=== PATIENT | female | born 1945 | race Caucasian/White ===

== ENCOUNTER 2017-04-10 10:31 | Outpatient (CLI) | payer MEDICARE, BC ==
--- NOTE | 2017-04-17 13:36 | MMO ---
BILATERAL SCREENING MAMMOGRAM: DATE: 04/10/17 HISTORY: 71-year-old female for screening mammography. COMPARISON: 11/13/15, 10/12/14, 09/11/13. FINDINGS: Bilateral MLO and CC views of the breasts show scattered fibroglandular breast tissue. Benign-appear ing calcifications are seen in both breasts. There is no evidence of suspicious mass, suspicious clu ster of microcalcifications, or area of architectural distortion. Interpretation of this mammogram was performed with the assistance of computer-aided detection. IMPRESSION: BIRADS 2: Benign Finding(s) Annual screening mammography is recommended. POS: [facility]
== END 2017-04-10 10:32 | disposition home or self-care (01) ==
LOC: MAMMO 10:31
PROVIDERS: ATTEND Obstetrics & Gynecology
DX: Z12.31 Encounter for screening mammogram for malignant neoplasm of breast (principal)
CPT/HCPCS: 77067; G0202

== ENCOUNTER 2017-11-26 12:41 | Outpatient (CLI) | payer MEDICARE, BC ==
[2017-11-26 14:06] LABS: #Eosinphils 0.1 thou/uL (0.0-0.7); #Lymphocytes 2.6 thou/uL (1.20-3.40); #Monocytes 0.4 thou/uL (0.11-0.59); #Neutrophils 3.9 thou/uL (1.40-6.50); %Basophils 0.6 % (0.0-1.0); %Eosinophils 1.2 % (0.0-10.0); %Lymphocytes 36.9 % (21.0-51.0); %Monocytes 6.2 % (0.0-10.0); %Neutrophils 55.1 % (42.0-75.0); Hemoglobin 13.4 g/dL (12.0-16.0); Mean Corpuscular HGB CONC 34.1 g/dL (32.0-36.0); Mean Corpuscular Hemoglobin 31.6 pg (27.0-31.0); Mean Corpuscular Volume 92.5 fl (81.0-99.0); Mean Platelet Volume 7.3 fL (7.4-10.4); Platelet Count 226 thou/uL (130-400); RBC Distribution Width 12.2 % (11.5-14.5); Red Blood Cell (RBC) Count 4.26 mill/uL (4.20-5.40)
[2017-11-26 14:29] LABS: ALT (SGPT) 44 U/L (8-55); AST (SGOT) 38 U/L (5-34); Albumin 4.2 g/dL (3.4-4.8); Alkaline Phosphatase 113 U/L (40-150); Anion Gap 13 mmol/L (10-20); BUN (Urea Nitrogen) 14 mg/dL (9.8-20.1); Bilirubin, Direct Less than 0.1 mg/dL (0.1-0.3); Bilirubin, Total 0.5 mg/dL (0.2-1.2); Calc. Creatinine Clearance 0 mL/min (70-130); Calcium 9.5 mg/dL (7.8-10.44); Carbon Dioxide 26 mmol/L (23-31); Chloride 103 mmol/L (98-107); Estimated GFR-MDRD 51; Glucose 131 mg/dL (83-110); Protein, Total 8.4 g/dL (6.0-8.3); Sodium 138 mmol/L (136-145)
--- NOTE | 2017-11-27 14:31 | EKG ---
Test Reason : Blood Pressure : / mmHG Vent. Rate : 073 BPM Atrial Rate : 073 BPM P-R Int : 190 ms QRS Dur : 090 ms QT Int : 382 ms P-R-T Axes : 024 078 054 degrees QTc Int : 420 ms Normal sinus rhythm Normal ECG No previous ECGs available Confirmed by DR. Monster ARRIAZA ([id number]) on 11/27/2017 2:31:15 PM Referred By: FARSHAD Confirmed By:DR. Monster ARRIAZA
== END 2017-11-26 12:42 | disposition home or self-care (01) ==
LOC: LABBT 12:41
PROVIDERS: ATTEND Surgery
DX: Z01.818 Encounter for other preprocedural examination (principal); K80.20 Calculus of gallbladder without cholecystitis without obstruction
CPT/HCPCS: 80048; 80076; 85025; 93005; 93010

== ENCOUNTER → 2017-11-29 | Day surgery (SDC) | payer MEDICARE, BC ==
[2017-11-26 13:07] VITALS: BMI 32.4
[~2017-11-29] MED LIST: Bupivacaine/Epinephrine 0.25% 30 ML VIAL ONE; CEFAZOLIN/Water 2 GM/20 ML SYRINGE ONE; Dexamethasone 20 MG/5 ML VIAL ONE; Fentanyl 100 MCG/2 ML VIAL ONE; Glycopyrrolate 0.2 MG/ML 5 ML SYRINGE ONE; HYDROcodone/Acetaminophen 5/325 mg Tablet ONE; Midazolam HCl 2 mg/2 ml Vial ONE; Morphine 4 MG/ML VIAL ONE; PROPOFOL 200 MG/20 ML VIAL ONE; Promethazine HCl 25 MG/ML VIAL ONE
--- NOTE | 2017-11-29 12:42 | OP ---
DATE OF PROCEDURE: 11/29/2017 PREOPERATIVE DIAGNOSIS: Symptomatic gallstones. POSTOPERATIVE DIAGNOSIS: Symptomatic gallstones. PROCEDURE: (1) Laparoscopic cholecystectomy. (2) Percutaneous liver biopsy, core SURGEON: Dr. Nunez. ANESTHESIA: General. ESTIMATED BLOOD LOSS: Minimal. COMPLICATIONS: None. SPECIMEN: Gallbladder, liver core biopsy FINDINGS: Chronic cholecystitis. PROCEDURE IN DETAIL: The patient was taken to the Operating Room and laid supine on the Operating Room table. After general anesthetic was obtained, the abdomen was prepped and draped in a sterile fashion. A curved incision was made below the umbilicus. Cautery was used to dissect down to the umbilical fascia. Umbilical fascia was incised and held up using a Tony. The abdominal cavity was entered using a Radha clamp. Holding stitch of Vicryl was placed on each side of the fascia. Eky trocar was placed. High-flow pneumoperitoneum was obtained. An upper midline 5-mm port and two right upper quadrant 5-mm ports were placed under direct camera visualization. The gallbladder was retracted from the gallbladder fossa. The peritoneum of the gallbladder was opened anteriorly and posteriorly. The critical view triangle was seen showing only the cystic duct and cystic artery branching from medial to lateral. There were no other branching structures. Two clips were placed proximally on the cystic duct and one laterally. It was cut using laparoscopic scissors. The cystic artery was taken in the same way. Electrocautery was then used to dissect the gallbladder out of the gallbladder fossa. The gallbladder was placed in an Endo catch bag and brought out through the Key. There was no bleeding or bile in the liver bed. The cystic duct stump and cystic artery stump were intact without evidence of extravasation or bleeding. A core needle biopsy gun was brought into the sterile field and three liver core biopsies were obtained. Liver bleeding was mild and controlled with cautery. All port sites were infiltrated using local anesthesia. All ports were removed under camera visualization. Pneumoperitoneum was let down. The Vicryl was used to close the fascial defect below the umbilicus. All incisions were irrigated and closed using 4-0 Monocryl and DermaBond. The patient was en route to Recovery in stable condition. All instrument counts, needle counts and lap counts were correct. [facility]
== END ==
LOC: SDC 09:29
PROVIDERS: ATTEND Surgery
PROC: 0FT44ZZ Resection of Gallbladder, Percutaneous Endoscopic Approach (ICD-10-PCS; principal; 2017-11-29)
DX: K80.10 Calculus of gallbladder with chronic cholecystitis without obstruction (principal); K83.0 Cholangitis; K76.0 Fatty (change of) liver, not elsewhere classified; K74.0 Hepatic fibrosis; Z79.899 Other long term (current) drug therapy
CPT/HCPCS: 88304; 88307; 88313; 96374; J1100; J2250; J2270; J2550; J2704; J3010

== ENCOUNTER 2018-06-05 09:00 | Outpatient (CLI) | payer MEDICARE, BC ==
--- NOTE | 2018-06-05 10:41 | ULT ---
HEPATIC ULTRASOUND WITH DOPPLER: INDICATION: Bilateral alcoholic cirrhosis. FINDINGS: Liver shows mildly increased echogenicity. No focal liver mass or lesion seen. The hepatic vessels evaluated with color Doppler and spectral analysis including hepatic veins, portal veins, hepatic art imrna, and splenic artery. These vessels show normal hepatopetal blood flow with Doppler. The patient is post cholecystectomy. Imaging of the pancreas reveals a hypoechoic mass posterior to the body/tail of the pancreas which me asures approximately 2.5 x 5.0 cm. This could represent adenopathy or pancreatic mass lesion. The spleen is upper normal size measured at 10 cm. IMPRESSION: 1. Hypoechoic mass seen posterior to the body and tail of pancreas. Recommend further evaluation wi th post contrast CT abdomen following pancreas protocol. 2. The liver shows mild increased echogenicity. The hepatic vessels show normal blood flow with Dop pler. POS: [facility]
== END 2018-06-05 09:01 | disposition home or self-care (01) ==
LOC: BICULT 09:00
PROVIDERS: ATTEND Internal Medicine Gastroenterology
DX: K76.0 Fatty (change of) liver, not elsewhere classified (principal); K74.60 Unspecified cirrhosis of liver
CPT/HCPCS: 76705

== ENCOUNTER 2018-06-11 08:46 | Outpatient (CLI) | payer MEDICARE, BC ==
[2018-06-11] MEDS ORDERED: Iopamidol 370 76% 100 ML VIAL ONE (11:43)
--- NOTE | 2018-06-11 13:06 | CT ---
CT ABDOMEN WITH AND WITHOUT IV CONTRAST: HISTORY: A 72-year-old female with a history of a follow-up abnormal ultrasound. Hypoechoic mass seen posteri or to the body and tail of the pancreas. Status post cholecystectomy and appendectomy. COMPARISON: Ultrasound examination from 06/05/2018. FINDINGS: There is a 0.4 cm in diameter, circumscribed pulmonary nodule in the right lower lobe. Status post c holecystectomy. No ductal dilatation. The visualized liver, pancreas, spleen, and adrenal glands ar e unremarkable. A 2.8 cm in diameter left lower pole renal cyst. There are some jejunal bowel loops adjacent to the pancreas, in the location that was described as th e area of abnormality on the prior ultrasound study. I feel that this finding on the ultrasound stud y related to fluid within the bowel. No evidence of adenopathy. No abscess or abnormal fluid collec tion within the abdomen. IMPRESSION: 1. Normal appearing pancreas. 2. Area of decreased echogenicity seen on prior ultrasound study appears to be related to fluid with in the bowel. 3. Status post cholecystectomy without ductal dilatation. 4. A 0.4 cm in diameter circumscribed nodule in the right lower lobe. Consider a follow-up one-year chest CT scan for further assessment. 5. Left lower pole renal cyst. POS: [facility]
== END 2018-06-11 08:47 | disposition home or self-care (01) ==
LOC: CT 08:46
PROVIDERS: ATTEND Internal Medicine Gastroenterology
DX: R93.89 Abnormal findings on diagnostic imaging of other specified body structures (principal); N28.1 Cyst of kidney, acquired; R91.1 Solitary pulmonary nodule; K86.9 Disease of pancreas, unspecified; Z90.49 Acquired absence of other specified parts of digestive tract
CPT/HCPCS: 74170; 82565

== ENCOUNTER 2019-01-24 08:08 | Outpatient (CLI) | payer MEDICARE, BC ==
--- NOTE | 2019-01-24 09:42 | ULT ---
ULTRASOUND HEPATIC DOPPLER: HISTORY: Nonalcoholic cirrhosis 571.5. Fatty liver 571.K. COMPARISON: None. FINDINGS: Real-time, kruger scale, color Doppler, and spectral analysis of the liver was performed. Visualized portions of the aorta, IVC, and pancreas are normal. There is coarsened hepatic echotextu re. No hepatic mass. The liver measures 16.3 cm in length. The portal vein is dilated measuring 1. 5 cm with velocity of approximately 20 cm/s. Slight decreased peak systolic velocity within the port al vein. The spleen measures 10.1 cm in length. The splenic artery and vein are patent. Hepatic veins are pa tent. Prior cholecystectomy. IMPRESSION: 1. Slightly dilated main portal vein with decreased peak systolic velocity less than 15 cm/s can be early signs of portal hypertension. 2. Mild nodular appearance of the contour of the liver with coarsened echotexture suggesting cirrhos is. POS: [facility]
== END 2019-01-24 08:09 | disposition home or self-care (01) ==
LOC: BICULT 08:08
PROVIDERS: ATTEND Internal Medicine Gastroenterology
DX: K74.60 Unspecified cirrhosis of liver (principal); K76.0 Fatty (change of) liver, not elsewhere classified; R19.7 Diarrhea, unspecified; K58.9 Irritable bowel syndrome, unspecified; K76.89 Other specified diseases of liver
CPT/HCPCS: 76705

== ENCOUNTER 2019-07-07 10:29 | Outpatient (CLI) | payer MEDICARE, BC ==
[2019-07-07] MEDS ORDERED: Iopamidol-370 76% 500 ML 1 ML ONE (11:35)
--- NOTE | 2019-07-07 11:43 | CT ---
CT CHEST WITH CONTRAST CLINICAL INDICATION: Pulmonary nodule seen in the lung bases on CT abdomen on 06/11/2018. COMPARISON: CT abdomen on 06/11/2018. FINDINGS: Aorta: Vascular calcifications are seen in the thoracic aorta. The thoracic aorta is normal in calibe r without evidence of an aortic dissection. Lungs: There is a stable approximately 5 mm pulmonary nodule seen in the medial aspect right lower lo be better imaged on today's examination. There is an additional noncalcified 5 mm pulmonary nodule seen in the superior segment of the right lower lobe which was not imaged on prior exam. No additiona l pulmonary nodule or mass is seen in the lungs bilaterally. No pleural effusion is identified. Mediastinum: There is no evidence of lymphadenopathy. Thyroid gland: Normal CT appearance. Osseous structures: No acute process. Chest wall: No abnormality visualized. Upper abdomen: There is partial visualization of postcholecystectomy changes. The liver demonstrates a slightly nodular contour suggesting cirrhosis. Vascular calcifications are seen in the abdominal aorta. Tiny too small to characterize hypodensities are seen in the superior pole of each kidney. IMPRESSION: 1. Stable right lower lobe pulmonary nodule, but there is an additional right lower lobe pulmonary no dule which was not imaged on the prior exam as the prior study was a CT of the abdomen. Since there have been no prior imaging studies to document stability of this additional pulmonary nodule, a follo w-up CT scan of thorax in 6 months to one year is recommended.
== END 2019-07-07 10:30 | disposition home or self-care (01) ==
LOC: BICCT 10:29
PROVIDERS: ATTEND Internal Medicine Gastroenterology
DX: R91.8 Other nonspecific abnormal finding of lung field (principal); R93.3 Abnormal findings on diagnostic imaging of other parts of digestive tract
CPT/HCPCS: 71260; 82565; Q9967

== ENCOUNTER 2019-07-29 10:41 | Outpatient (CLI) | payer MEDICARE, BC ==
--- NOTE | 2019-07-29 11:10 | ULT ---
EXAM: US Hepatic Doppler PROVIDED CLINICAL HISTORY: Cirrhosis COMPARISON: 01/24/2019 FINDINGS: The visualized portions of the abdominal aorta and IVC and pancreas appear normal. Liver demonstrates no evidence for mass or intrahepatic biliary ductal dilatation. The common duct is nondilated. The gallbladder is not visualized, compatible with the provided clinical history of prior cholecystec tejal. The spleen measures 10.1 x 4.5 x 10.1 cm. No focal splenic abnormality is evident. Color Doppler with spectral analysis was performed of the hepatic veins, portal veins, hepatic arteri es as well as splenic artery and vein. Appropriate direction of flow is demonstrated. IMPRESSION: 1. No evidence for hepatic mass. 2. Normal hepatic Doppler.
== END 2019-07-29 10:42 | disposition home or self-care (01) ==
LOC: BICULT 10:41
PROVIDERS: ATTEND Internal Medicine Gastroenterology
DX: K74.60 Unspecified cirrhosis of liver (principal); K76.0 Fatty (change of) liver, not elsewhere classified; R91.8 Other nonspecific abnormal finding of lung field
CPT/HCPCS: 76705

== ENCOUNTER 2020-01-26 08:32 | Outpatient (CLI) | payer MEDICARE, BC ==
--- NOTE | 2020-01-26 09:15 | MMO ---
Right Breast MAMMO Unilat Diag DDI RT+YUSUF. CLINICAL HISTORY: Patient is 74 years old and is seen for diagnostic exam. The patient has no family history of breast cancer. The patient has no personal history of cancer. VIEWS: The views performed were: right craniocaudal spot compression with tomosynthesis and right mediolateral with tomosynthesis. FILMS COMPARED: The present examination has been compared to prior imaging studies performed at [facility] [place] on 01/08/2019 and 01/13/2020. This study has been interpreted with the assistance of computer-aided detection. MAMMOGRAM FINDINGS: There are scattered fibroglandular densities. Finding 1: There are stable benign appearing calcifications seen in the right breast. Finding 2: There are several stable focal asymmetries seen in the right breast. There are no suspicious masses, suspicious calcifications, or new areas of architectural distortion. IMPRESSION: THERE IS NO MAMMOGRAPHIC EVIDENCE OF MALIGNANCY. A ROUTINE FOLLOW-UP MAMMOGRAM IN 1 YEAR IS RECOMMENDED. THE RESULTS OF THIS EXAM WERE SENT TO THE PATIENT. ACR BI-RADS Category 2 - Benign finding MAMMOGRAPHY NOTE: 1. A negative mammogram report should not delay a biopsy if a dominant of clinically suspicious mass is present. 2. Approximately 10% to 15% of breast cancers are not detected by mammography. 3. Adenosis and dense breasts may obscure an underlying neoplasm. Reported by: DORI JACK MD Electonically Signed: [id number]
== END 2020-01-26 08:33 | disposition home or self-care (01) ==
LOC: BICMAMMO 08:32
PROVIDERS: ATTEND Obstetrics & Gynecology
DX: R92.8 Other abnormal and inconclusive findings on diagnostic imaging of breast (principal)
CPT/HCPCS: 77065; G0279

== ENCOUNTER 2020-08-13 09:14 | Outpatient (CLI) | payer MEDICARE, BC ==
--- NOTE | 2020-08-13 09:56 | ULT ---
Hepatic Doppler ultrasound: 08/13/2020 COMPARISON: 01/28/2020 History: Cirrhosis TECHNIQUE: Multiplanar grayscale sonographic imaging of the upper abdomen obtained. The hepatic and s plenic vasculature is assessed with Doppler interrogation including color flow and spectral analysis FINDINGS: Imaged pancreas unremarkable. The tail is obscured by bowel gas. Imaged IVC and aorta appea r within normal limits. The hepatic parenchyma is echogenic and heterogeneous, similar when compared to the prior examination , and consistent with the provided history of hepatocellular disease. Left hepatic vein and portal vein, middle hepatic vein, and right hepatic vein and portal vein are pa tent and demonstrate appropriate waveforms and flow direction. Main portal vein is patent and demonstrates hepatopedal flow. Common bile duct measures 5 mm, within normal limits. The patient is status post cholecystectomy. Hepatic artery is patent with a normal arterial waveform. Spleen measures up to 10.2 cm, within srinath l limits. Detailed assessment of the right kidney is limited. No right-sided hydronephrosis. Splenic artery and splenic vein are patent and demonstrate appropriate arterial and venous waveforms respectively. IMPRESSION: Patent hepatic and splenic vasculature as detailed above.
--- NOTE | 2020-08-13 10:10 | CT ---
EXAM: CT Chest WO Con PROVIDED CLINICAL HISTORY: Pulmonary nodule COMPARISON: 07/07/2019 FINDINGS: The heart, pericardium and great vessels are suboptimally evaluated in the absence of IV contrast mat erial. Vascular calcification is demonstrated. There is no evidence for thoracic lymph node enlargement, with limitations due to lack of IV contrast material. The airway appears patent and of normal caliber. Stable sub-6 mm noncalcified pulmonary nodules in the right lower lobe. No evidence for new nodule. No pleural fluid or pneumothorax apparent. The visualized portions of the upper abdomen demonstrate an unremarkable unenhanced CT appearance wit h the exception of cirrhotic morphology of the liver. The osseous structures demonstrate no concerning lytic or blastic lesions. IMPRESSION: Stable sub-6 mm right lower lobe noncalcified pulmonary nodules. No further follow-up is indicated by Fleischner criteria.
== END 2020-08-13 09:15 | disposition home or self-care (01) ==
LOC: BICULT 09:14
PROVIDERS: ATTEND Internal Medicine Gastroenterology
DX: R91.8 Other nonspecific abnormal finding of lung field (principal); K74.60 Unspecified cirrhosis of liver; Z90.49 Acquired absence of other specified parts of digestive tract
CPT/HCPCS: 71250; 76705

== ENCOUNTER 2020-10-27 14:26 | Outpatient (CLI) | payer MEDICARE, BC | END 2020-10-27 14:27 | disposition home or self-care (01) | LOC: BICULT 14:26 | PROVIDERS: ATTEND Family Medicine | DX: Z13.6 Encounter for screening for cardiovascular disorders (principal) | CPT/HCPCS: 93880 ==

== ENCOUNTER 2021-03-29 11:01 | Outpatient (CLI) | payer MEDICARE, BC | END 2021-03-29 11:02 | disposition home or self-care (01) | LOC: BICMAMMO 11:01 | PROVIDERS: ATTEND Obstetrics & Gynecology | DX: Z12.31 Encounter for screening mammogram for malignant neoplasm of breast (principal) | CPT/HCPCS: 77063; 77067 ==

== ENCOUNTER 2022-03-10 09:09 | Outpatient (CLI) | payer MEDICARE, BC | END 2022-03-10 09:10 | disposition home or self-care (01) | LOC: BICULT 09:09 | PROVIDERS: ATTEND Internal Medicine Gastroenterology | DX: K74.60 Unspecified cirrhosis of liver (principal) | CPT/HCPCS: 76705 ==

== ENCOUNTER 2022-04-10 10:37 | Outpatient (CLI) | payer MEDICARE, BC | END 2022-04-10 10:38 | disposition home or self-care (01) | LOC: BICMAMMO 10:37 | PROVIDERS: ATTEND Obstetrics & Gynecology | DX: Z12.31 Encounter for screening mammogram for malignant neoplasm of breast (principal) | CPT/HCPCS: 77063; 77067 ==

== ENCOUNTER 2022-12-01 09:01 | Outpatient (CLI) | payer MEDICARE | END 2022-12-01 09:02 | disposition home or self-care (01) | LOC: BICULT 09:01 | PROVIDERS: ATTEND Internal Medicine Gastroenterology | DX: K74.60 Unspecified cirrhosis of liver (principal) | CPT/HCPCS: 76705 ==

== ENCOUNTER 2023-07-24 13:30 | Outpatient (CLI) | payer MEDICARE | END 2023-07-24 13:31 | disposition home or self-care (01) | LOC: BICMAMMO 13:30 | PROVIDERS: ATTEND Obstetrics & Gynecology | DX: Z12.31 Encounter for screening mammogram for malignant neoplasm of breast (principal); Z80.3 Family history of malignant neoplasm of breast | CPT/HCPCS: 77063; 77067 ==

== ENCOUNTER 2023-08-30 08:29 | Outpatient (CLI) | payer MEDICARE | END 2023-08-30 08:30 | disposition home or self-care (01) | LOC: BICULT 08:29 | PROVIDERS: ATTEND Physician Assistant Medical | DX: K74.60 Unspecified cirrhosis of liver (principal); D50.9 Iron deficiency anemia, unspecified; R93.2 Abnormal findings on diagnostic imaging of liver and biliary tract; Z90.49 Acquired absence of other specified parts of digestive tract | CPT/HCPCS: 76705 ==

== ENCOUNTER 2024-09-15 12:20 | Outpatient (CLI) | payer MEDICARE | END 2024-09-15 12:21 | disposition home or self-care (01) | LOC: BICMAMMO 12:20 | PROVIDERS: ATTEND Obstetrics & Gynecology | DX: Z12.31 Encounter for screening mammogram for malignant neoplasm of breast (principal); Z80.3 Family history of malignant neoplasm of breast | CPT/HCPCS: 77063; 77067 ==